=== PATIENT | male | born 1965 | race American Indian/Alaskan Native ===

== ENCOUNTER 2017-07-05 09:34 | Outpatient (CLI) | payer BC ==
--- NOTE | 2017-07-05 13:08 | XRay Report ---
XRAY BILATERAL KNEE THREE VIEWS EACH: 07/05/17 09:34:00 CLINICAL: Bilateral knee pain. FINDINGS: Right: Osteoarthritis of the medial joint space with near complete loss of the joint space and large medial osteophytes. Valgus deformity with widening of the lateral joint space and moderate size lateral osteophytes. Large patellofemoral osteophytes. No fracture or dislocation. No joint effusion. Normal soft tissues. Left: Osteoarthritis of the medial joint space with complete loss of the joint space and large medial osteophytes. Valgus deformity with widening of the lateral joint space and slight lateral subluxation of the tibia. Large patellofemoral osteophytes. No fracture or dislocation. No joint effusion.Normal soft tissues. IMPRESSION: Osteoarthritis with greater involvement of the medial joint spaces and the patellofemoral joints.
== END 2017-07-05 09:35 | disposition home or self-care (01) ==
LOC: SPVIMAG 09:34
PROVIDERS: ATTEND Orthopaedic Surgery
DX: M17.0 Bilateral primary osteoarthritis of knee (principal)